=== PATIENT | male | born 1985 | race Caucasian/White ===

== ENCOUNTER 2023-02-26 09:17 | Emergency (ER) | payer SELFPAY ==
[~2023-02-26] VITALS: Ht 177.8 cm; Wt 86.1 kg
[~2023-02-26 09:17] MED LIST: ACHD5005 PO; AMOX500C2 PO; INVEGA; NAPR-243 PO; PRM25T PO; TRM50T PO; XANAX
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
[2023-02-26 11:00] VITALS: BP 138/92
== END 2023-02-26 11:00 | disposition home or self-care (01) ==
LOC: EDUNIT# 09:17 → ER 09:22
DX: S02.5XXA Fracture of tooth (traumatic), initial encounter for closed fracture (principal); S01.511A Laceration without foreign body of lip, initial encounter; S05.12XA Contusion of eyeball and orbital tissues, left eye, initial encounter; F17.210 Nicotine dependence, cigarettes, uncomplicated; W22.8XXA Striking against or struck by other objects, initial encounter
CPT/HCPCS: 70486

== ENCOUNTER 2023-03-11 20:10 | Emergency (ER) | payer SELFPAY ==
[~2023-03-11] VITALS: Ht 177.8 cm; Wt 88.5 kg
[2023-03-11 20:34] VITALS: BP 152/95
[2023-03-11] MEDS ORDERED: HYDROcodone/APAP 5 MG/325 MG (LORTAB) TAB PO ONE (20:45)
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
--- NOTE | 2023-03-11 21:11 | Diagnostic Imaging Report ---
INDICATION: Right humerus pain AP and lateral views of the right humerus are obtained with comparison made to study of 08/24/2013. There has been further remodeling of old fracture deformity in the mid shaft of the humerus. Mild degenerative findings also present at the acromioclavicular joint, however, no new fracture or malalignment is identified. IMPRESSION: Remodeling of old fracture deformity in the midshaft of the right humerus without acute osseous abnormality detected. Dictated by: Dictated on workstation # [id number]
--- NOTE | 2023-03-11 21:18 | Diagnostic Imaging Report ---
INDICATION: Left rib injury. Three views of the left ribs do not show any displaced fractures. There is no effusion or pneumothorax. IMPRESSION: Negative left ribs. Dictated by: Dictated on workstation # [id number]
--- NOTE | 2023-03-11 21:18 | Diagnostic Imaging Report ---
INDICATION: Right shoulder pain Three views of the right shoulder show no fracture, dislocation or other acute abnormalities. There is an old healed fracture of the mid humeral shaft. IMPRESSION: No acute abnormalities seen in the right shoulder. Dictated by: Dictated on workstation # [id number]
[2023-03-11] MEDS ORDERED: MELO15TA39 PO (21:47)
== END 2023-03-11 21:51 | disposition home or self-care (01) ==
LOC: EDUNIT# 20:10 → ER 20:11
DX: M25.511 Pain in right shoulder (principal); R07.81 Pleurodynia; Z87.81 Personal history of (healed) traumatic fracture; Z28.311 Partially vaccinated for COVID-19; W11.XXXA Fall on and from ladder, initial encounter; W20.8XXA Other cause of strike by thrown, projected or falling object, initial encounter; W22.01XA Walked into wall, initial encounter
CPT/HCPCS: 71100; 73030; 73060

== ENCOUNTER 2023-03-14 20:54 | Emergency (ER) | payer SELFPAY ==
[~2023-03-14] VITALS: Ht 177.8 cm; Wt 88.4 kg
[~2023-03-14 20:54] MED LIST changes: +MELO15TA39 PO
[2023-03-14 21:15] VITALS: BP 137/93
[2023-03-14] MEDS ORDERED: morphine INJ 10 MG/ML 1ML (SYR OR VIAL) IVP STA (21:21)
--- NOTE | 2023-03-14 21:27 | ED Respiratory ---
General Chief Complaint: Respiratory Problems Stated Complaint: DIZZY/SOA Source: patient Exam Limitations: no limitations History of Present Illness Date Seen by Provider: Mar 14, 2023 Time Seen by Provider: 21:16 Initial Comments 37-year-old male presents to the emergency department today for shortness of breath associated with lightheadedness over the course of the last 2 years. He states symptoms present since after he had COVID. He had the doctors in senior care checking out and has had primary doctors check him out and keeps getting told "that I am fine." He denies any fevers or chills. He states anytime he does anything he gets short of breath. No new symptoms but he does state that is progressively worsening over the course of the last couple of years All other systems reviewed and negative except documented per HPI. Voice recognition software was used to help create this chart Allergies and Home Medications Allergies Coded Allergies: No Known Drug Allergies (Unverified , 04/08/10) Patient Home Medication List Home Medication List Reviewed: Yes Amoxicillin (Amoxicillin) 500 Mg Capsule, 1 EACH PO TID Prescribed by: TRISHA HOLDEN on 03/30/13 1030 Hydrocodone Bit/Acetaminophen (Lortab 5 Mg Tablet) 1 Each Tablet, 1-2 EACH PO Q6H PRN Prescribed by: TRISHA HOLDEN on 03/30/13 1030 Meloxicam (Meloxicam) 15 Mg Tablet, 15 MG PO DAILY Prescribed by: BELLA YAÑEZ on 03/11/23 2147 Naproxen (Naprosyn) 500 Mg Tablet, 1 EACH PO BID PRN Prescribed by: TRISHA HOLDEN on 03/30/13 1030 Tramadol Hcl (Ultram) 50 Mg Tab, 100 MG PO Q6H Prescribed by: YOKO DINERO on 02/17/13 1456 [Invega] , (Reported) Entered as Reported by: BALAJI BYRNES on 03/30/13 0949 [Xanax] , (Reported) Entered as Reported by: BALAJI BYRNES on 03/30/1349 Review of Systems Review of Systems Constitutional: see HPI Past Tkvllzi-Klhcsk-Dkvtzj Hx Patient Social History Tobacco Use?: Yes Tobacco type used: Cigarettes Substance use?: No Alcohol Use?: No Immunizations Up To Date Tetanus Booster (TDap): Less than 5yrs First/Initial COVID19 Vaccinat: 2020 Second COVID19 Vaccination Ender: NONE Third COVID19 Vaccination Date: NONE Seasonal Allergies Seasonal Allergies: No Past Medical History Reproductive Disorders: No Sexually Transmitted Disease: No HIV/AIDS: No Back Injury, Chronic Back Pain, Fractures Schizophrenia Family Medical History No Pertinent Family Hx Physical Exam Capillary Refill : Height: '" Weight: lbs. oz. kg; 27.00 BMI Method:Stated General Appearance: WD/WN, no apparent distress Eyes: Bilateral Eye Normal Inspection, Bilateral Eye PERRL, Bilateral Eye EOMI Cardiovascular: no murmur Progress/Results/Core Measures Suspected Sepsis SIRS Temperature: Pulse: Respiratory Rate: Blood Pressure / Mean: Results/Orders My Orders Orders - CORTNEY ARTEAGA DO Morphine Injection (Morphine Injection (03/14/23 21:21) Vital Signs/I&O Capillary Refill : Departure Communication (Admissions) The patient is hemodynamically stable with normal oxygen saturation and otherwise normal vital signs. He is in no respiratory distress whatsoever and comfortable lying in the bed. He is nontoxic and afebrile. Symptoms present for 2 years and progressively worsening. He states he is frustrated because nobody can figure out what is going on with him. Initially advised him that I certainly cannot make any promises that I can figure it out from an emergency standpoint as mild resources are limited to emergency medical conditions. He becomes irritated and states "while somebody has to fucking do something for me." I advised him that I was happy to look him over hand to the best I could to try to figure it out but that the chance of this was low given that this is a relatively chronic problem and he has had multiple chest x-rays and other testing to try to figure it out. He becomes irritated and aggressive, yelling at me and cursing. I advised that I was happy to take care of him but I would not tolerate the aggression. He took off all of his monitors prior to me examining him and walked out. I did advise him on his way out should he desire to be reevaluated that we were happy to do so. Impression Primary Impression: Dyspnea Qualified Codes: R06.09 - Other forms of dyspnea Disposition: AGAINST MEDICAL ADVICE Condition: Against Medical Advice Departure-Patient Inst. Referrals: NO,LOCAL PHYSICIAN (PCP/Family) Primary Care Physician CORTNEY ARTEAGA DO Mar 14, 2023 21:27
== END 2023-03-14 21:25 | disposition left against medical advice (07) ==
LOC: EDUNIT# 20:54 → ER 20:57
DX: R06.00 Dyspnea, unspecified (principal); F17.210 Nicotine dependence, cigarettes, uncomplicated; Z28.311 Partially vaccinated for COVID-19
CPT/HCPCS: 99281

== ENCOUNTER 2023-04-19 06:50 | Emergency (ER) | payer SELFPAY ==
[~2023-04-19] VITALS: Ht 175 cm; Wt 90.7 kg
--- NOTE | 2023-04-19 07:15 | ED Respiratory ---
General Chief Complaint: Cough/Cold/Flu Symptoms Stated Complaint: SOB,STS BLACK MOLD IN CUSTODIAL Source: patient Exam Limitations: no limitations History of Present Illness Date Seen by Provider: April 19, 2023 Time Seen by Provider: 07:06 Initial Comments Patient is a 37-year-old male who presents to the emergency room with a chief complaint of feeling short of breath. Patient states that he gets short of breath every time he gets up and exerts himself. He states he can just be standing from a sitting position and feels like he is short of breath and may pass out. He denies chest pain, palpitations. No nausea vomiting. No sweating. No swelling in his legs. He attributes the shortness of breath to being in shelter for 5 years and being exposed to black mold. He states he got out of shelter 2 years ago. He states the symptoms have been going on for the last 2 years. He states he is only been to the emergency room for his symptoms. He has used some [id number]-[id number]-[id number] "bronchitis inhalers" from [facility] without any relief. He states he used to see Dr. GARCIAS 15 years ago. Has not had any primary care follow-up since. He is not on any prescribed daily medications. No allergies to medications. He does smoke 1 pack of cigarettes daily. Denies fevers or chills. Denies productive cough. denies sinus pain or drainage. Timing/Duration: other (2 years) Severity: moderate Prior Episodes/Possible Cause: frequent episodes, smoke exposure Associated Symptoms: shortness of breath Allergies and Home Medications Allergies Coded Allergies: No Known Drug Allergies (Unverified , 04/08/10) Patient Home Medication List Home Medication List Reviewed: Yes Amoxicillin (Amoxicillin) 500 Mg Capsule, 1 EACH PO TID Prescribed by: TRISHA HOLDEN on 03/30/13 1030 Hydrocodone Bit/Acetaminophen (Lortab 5 Mg Tablet) 1 Each Tablet, 1-2 EACH PO Q6H PRN Prescribed by: TRISHA HOLDEN on 03/30/13 1030 Meloxicam (Meloxicam) 15 Mg Tablet, 15 MG PO DAILY Prescribed by: BELLA YAÑEZ on 03/11/232146 Naproxen (Naprosyn) 500 Mg Tablet, 1 EACH PO BID PRN Prescribed by: TRISHA HOLDEN on 03/30/13 1030 Tramadol Hcl (Ultram) 50 Mg Tab, 100 MG PO Q6H Prescribed by: YOKO DINERO on 02/17/13 1456 [Invega] , (Reported) Entered as Reported by: BALAJI BYRNES on 03/30/13 0949 [Xanax] , (Reported) Entered as Reported by: BALAJI BYRNES on 03/30/13 0949 Review of Systems Review of Systems Constitutional: see HPI EENTM: no symptoms reported Respiratory: short of breath Cardiovascular: no symptoms reported Gastrointestinal: no symptoms reported Genitourinary: no symptoms reported Musculoskeletal: no symptoms reported Skin: no symptoms reported Psychiatric/Neurological: No Symptoms Reported All Other Systems Reviewed Negative Unless Noted: Yes Past Likcllt-Xdnoic-Ewyqas Hx Patient Social History Tobacco Use?: Yes Tobacco type used: Cigarettes Smoking Status: Current Everyday Smoker Substance use?: No Alcohol Use?: No Pt feels they are or have been: No Immunizations Up To Date Tetanus Booster (TDap): Less than 5yrs First/Initial COVID19 Vaccinat: 2020 Second COVID19 Vaccination Ender: NONE Third COVID19 Vaccination Date: NONE Seasonal Allergies Seasonal Allergies: No Past Medical History Reproductive Disorders: No Sexually Transmitted Disease: No HIV/AIDS: No Back Injury, Chronic Back Pain, Fractures Schizophrenia Family Medical History No Pertinent Family Hx Physical Exam Vital Signs - First Documented 04/19/23 07:01 Temp 35.3 Pulse 84 Resp 16 B/P (MAP) 156/107 (123) Pulse Ox 97 O2 Delivery Room Air Capillary Refill : Height: '" Weight: lbs. oz. kg; 27.00 BMI Method:Stated General Appearance: WD/WN, no apparent distress, other (Resting comfortably on the bed slightly hypertensive with a blood pressure in the 150/110 range. Room air oxygen saturations at 98% with no evidence of distress or labored breathing. Pulse in the 80s) HEENT: PERRL/EOMI Neck: supple Respiratory: lungs clear, normal breath sounds, no respiratory distress, no accessory muscle use Cardiovascular: regular rate, rhythm (80's) Gastrointestinal: normal bowel sounds, non tender, soft Extremities: normal range of motion, no pedal edema Neurologic/Psychiatric: alert, oriented x 3, other (flat affect) Skin: normal color, warm/dry Progress/Results/Core Measures Suspected Sepsis SIRS Temperature: Pulse: Respiratory Rate: Blood Pressure / Mean: Results/Orders My Orders Orders - JOSE ELIAS LAMAS MD Chest Pa/Lat (2 View) (04/19/23 07:19) Ekg Tracing (04/19/23 07:19) Vital Signs/I&O 04/19/23 04/19/23 04/19/23 07:01 07:01 08:37 Temp 35.3 Pulse 84 91 Resp 16 16 B/P (MAP) 156/107 (123) 153/107 Pulse Ox 97 100 O2 Delivery Room Air Room Air Capillary Refill : Progress Note : Progress Note Patient seen and examined by me. Eval today includes physical exam, EKG and CXR. No abnormal physical exam findings. DDx includes COPD/bronchitis. EKG and CXR independently interpreted by me. EKG NRS without ectopy or ST segment change. CXR unremarkable for any significant findings. Patient provided reassurance. Advised his likely cause for SOB is his smoking history and encouraged smoking cessation as well as follow up with a primary care provider to further evaluate. REturn precautions given. ECG Initial ECG Impression Date: April 19, 2023 Initial ECG Impression Time: 07:55 Initial ECG Rate: 85 Initial ECG Rhythm: Normal Sinus Initial ECG Intervals: Normal Initial ECG Impression: Normal Diagnostic Imaging Diagonstic Imaging: Xray Plain Films/CT/US/NM/MRI: chest Comments NAME: KELVIN MARIE MED REC#: [id number] PT STATUS: REG ER : 1985 PHYSICIAN: JOSE ELIAS LAMAS MD ADMIT DATE: 04/19/23/ER Draft Date of Exam:04/19/23 CHEST PA/LAT (2 VIEW) EXAMINATION: Chest 2 view HISTORY: SOB with exertion COMPARISON: None available. FINDINGS: Heart size and pulmonary vasculature are normal. The lungs are clear without consolidation, pleural effusion, or pneumothorax. Degenerative changes of the thoracic spine. Osseous structures are otherwise intact. IMPRESSION: 1. No acute radiographic abnormality in the chest. Dictated on workstation # [id number] Dict: 04/19/23824 Trans: 04/19/23827 CV [id number] Interpreted by: OLGA DELCID DO Electronically signed by: Counseling-Symptomatic: 3-10 Minutes Follow-up with PCP to: Discuss Further Options Departure Impression Primary Impression: Dyspnea Qualified Codes: R06.00 - Dyspnea, unspecified Additional Impressions: Tobacco dependence with current use Elevated blood pressure reading Disposition: 01 HOME, SELF-CARE Condition: Stable Departure-Patient Inst. Decision time for Depature: 08:32 Referrals: [facility]/ANNI MTZ DO (PCP/Family) Primary Care Physician Patient Instructions: Quitting Smoking ED Add. Discharge Instructions: You should really consider quitting smokin, as this would be the best thing to start improving your shortness of breath. When you first quit, you may feel a little more short of breath and have cough in the beginning, but this will improve with time. Please call [facility] or Dr Garcias's office for a follow up visit to establish Primary Care to further look into your shortness of breath over the last 2 years - I suspect it is more to do with your smoking than mold exposure. If you develop a fever, cough with phlegm, or any other worsening, emergent concerns, please return to the Emergency Department for re-evaluation. JOSE ELIAS LAMAS MD April 19, 2023 07:15
--- NOTE | 2023-04-19 08:28 | Diagnostic Imaging Report ---
EXAMINATION: Chest 2 view HISTORY: SOB with exertion COMPARISON: None available. FINDINGS: Heart size and pulmonary vasculature are normal. The lungs are clear without consolidation, pleural effusion, or pneumothorax. Degenerative changes of the thoracic spine. Osseous structures are otherwise intact. IMPRESSION: 1. No acute radiographic abnormality in the chest. Dictated by: Dictated on workstation # [id number]
[2023-04-19 08:37] VITALS: BP 153/107
== END 2023-04-19 08:37 | disposition home or self-care (01) ==
LOC: EDUNIT# 06:50 → ER 06:54
DX: R06.02 Shortness of breath (principal); R03.0 Elevated blood-pressure reading, without diagnosis of hypertension; F17.210 Nicotine dependence, cigarettes, uncomplicated; Z28.311 Partially vaccinated for COVID-19
CPT/HCPCS: 71046